=== PATIENT | female | born 1970 | race Caucasian/White ===

== ENCOUNTER 2018-07-13 06:22 | Outpatient (CLI) | payer OTHER ==
[~2018-07-13] VITALS: Ht 157.5 cm; Wt 65.8 kg
[2018-07-13] MEDS ORDERED: FERR-84 PO (12:08)
[2018-07-13] MEDS ORDERED: SIMV20TA3 PO (12:08)
[2018-07-13] MEDS ORDERED: RT-ALBUINH IH (12:08)
[2018-07-13] MEDS ORDERED: ASPI-586 PO (12:08)
[2018-07-13] MEDS ORDERED: CYAN250010 PO (12:08)
[2018-07-15] MEDS ORDERED: FERR325T17 PO (09:25)
[2018-07-15] MEDS ORDERED: DICL75TA2 PO (09:25)
[2018-07-15] MEDS ORDERED: CYAN500T44 PO (09:25)
[2018-07-15] MEDS ORDERED: PRAV20TA3 PO (09:25)
== END 2018-07-13 16:00 | disposition home or self-care (01) ==
LOC: PREOP 06:22
PROVIDERS: ATTEND Obstetrics & Gynecology
DX: Z01.818 Encounter for other preprocedural examination (principal)

== ENCOUNTER 2018-12-28 05:44 | Outpatient (CLI) | payer OTHER ==
[~2018-12-28] VITALS: Ht 157.5 cm; Wt 62.6 kg
[~2018-12-28 05:44] MED LIST: ASPI-586 PO; CYAN250010 PO; CYAN500T44 PO; DICL75TA2 PO; FERR-84 PO; FERR325T17 PO; PRAV20TA3 PO; RT-ALBUINH IH; SIMV20TA3 PO
[2018-12-31] MEDS ORDERED: OXC5T PO (14:14)
[2018-12-31] MEDS ORDERED: IBUP-844 PO (14:14)
[2018-12-31] MEDS ORDERED: ACET-77 PO (14:14)
== END 2018-12-28 16:20 ==
LOC: PREOP 05:44
PROVIDERS: ATTEND Obstetrics & Gynecology
DX: Z01.818 Encounter for other preprocedural examination (principal); N84.0 Polyp of corpus uteri

== ENCOUNTER 2018-12-31 11:21 | Day surgery (SDC) | payer OTHER ==
[2018-12-31] VITALS (8 sets, daily range): BP systolic 88–116; BP diastolic 57–88
[~2018-12-31] VITALS: Ht 157.5 cm; Wt 62.6 kg
[2018-12-31] MEDS ORDERED: metroNIDAZOLE 500MG/100ML IVPB 100 ML IV ONE (12:00)
[2018-12-31] MEDS ORDERED: ceFAZolin INJECTION 1,000 MG in WATER (STERILE) FOR INJECTION 10 ML IV ONE (12:00)
[2018-12-31] MEDS: LACTATED RINGERS 1,000 ML IV PRN ×2 (12:00→14:13)
[2018-12-31] MEDS ORDERED: ONDANSETRON 4 MG/2 ML (SDV) Z0FRAN ONE (12:26)
[2018-12-31] MEDS ORDERED: MIDAZOLAM 2 MG/2 ML (VERSED) VIAL ONE (12:26)
[2018-12-31] MEDS ORDERED: SEVOFLURANE (ULTANE) 15 ML INHAL SOLN ONE ×2 (12:26→14:05)
[2018-12-31] MEDS ORDERED: proPOfol 200 MG/20 ML (DIPRIVAN) VIAL IV ONE (12:26)
[2018-12-31] MEDS ORDERED: LIDOCAINE PF 2% 5 ML (XYLOCAINE) VIAL ONE (12:26)
[2018-12-31] MEDS ORDERED: fentaNYL INJECTION 100 MCG/2 ML AMP ONE (12:26)
[2018-12-31] MEDS ORDERED: DEXAMETHASONE 10 MG/ML (DECADRON) 1 ML VIAL ONE (12:26)
--- NOTE | 2018-12-31 13:16 | Progress Note-Pre Operative ---
Pre-Operative Progress Note H&P Reviewed The H&P was reviewed, patient examined and no changes noted. Date Seen by Provider: Dec 31, 2018 Time Seen by Provider: 13:10 Date H&P Reviewed: Dec 31, 2018 Time H&P Reviewed: 13:10 Pre-Operative Diagnosis: menorrhagia, thickened endometrium, endometrial polyp BE DOYLE DO Dec 31, 2018 13:16
[2018-12-31] MEDS ORDERED: D5 LR IV SOLUTION 1,000 ML IV SCH (14:07)
--- NOTE | 2018-12-31 14:12 | Operative Report ---
Operative Report Date of Procedure/Surgery Dec 31, 2018 Surgeon (s) BE DOYLE DO Hide Worker (s): Marisabel Zhang, MS III Post-Operative Diagnosis Endometrial polyp menorrhagia Procedure Performed Hysteroscopy, dilation and curettage, Kaylin endometrial ablation Description of Procedure Anesthesia Type: General Estimated blood loss (mL): minimal Specimen(s) collected/removed endometrial curettings, endometrial polyps Description of the Procedure 4.5 cm cervix 4 cm uterus 120 seconds Allergies and Home Medications Allergies Coded Allergies: No Known Drug Allergies (Unverified , 12/28/18) Home Medications Albuterol Sulfate 1 Puff Puff, 2 PUFF IH Q4H PRN for SHORTNESS OF BREATH, (Reported) 1 PUFF = 90 MCG Aspirin 81 Mg Tablet.dr, 81 MG PO DAILY, (Reported) Cyanocobalamin (Vitamin B-12) 500 Mcg Tablet, 500 MCG PO HS, (Reported) Ferrous Gluconate Unknown Strength Tablet, 75 MG PO HS, (Reported) TAKE 2 (37.5MG) TABS Pravastatin Sodium 20 Mg Tablet, 10 MG PO HS, (Reported) Patient Home Medication List Home Medication List Reviewed: Yes BE DOYLE DO Dec 31, 2018 14:12
[2018-12-31] MEDS ORDERED: ACET-77 PO (14:14)
[2018-12-31] MEDS ORDERED: IBUP-844 PO (14:14)
[2018-12-31] MEDS ORDERED: OXC5T PO (14:14)
[2018-12-31] MEDS ORDERED: ACETAMINOPHEN 500 MG TAB (TYLENOL) PO PRN (14:15)
[2018-12-31] MEDS ORDERED: KETOROLAC 30 MG/ML VIAL IVP ONE (14:15)
--- NOTE | 2018-12-31 14:17 | Discharge Inst-Surgical ---
Discharge Inst-Surgical Reconcile Patient Problems Problems Reviewed?: Yes Depart Medication/Instructions New, Converted or Re-Newed RX: RX on Chart Patient Instructions nothing in the vagina until follow up expect vaginal discharge/spotting/light bleeding for 2-4 weeks Final Diagnosis: endometrial polyp, menorrhagia Consults/Follow Up Goal/Follow Up Appt.: 1-2 weeks with Doyle Activity Activity as Tolerated: Yes Driving Instructions: No Driving for 24 Hours No Driving When on Pain Meds: Yes Incentive Spirometry: Every 2 Hours While Awake Avoid ALL Tobacco Products: Smoking of Any Kind Diet Discharge Diet: No Restrictions Diet for 24 Hours: No Alcohol, No [place] Foods, No Spicy Foods Diet After 24 Hours: Resume Home Diet Symptoms to Report to Physicia: Bleeding Excessive, Pain Increased, Fever Over 101 Degrees F, Vaginal Bleeding Increase, Cramps in Feet or Legs, Vaginal Discharge Foul If Any Problems/Questions/Issu: Contact Your Physician Skin/Wound Care Restrictions: No Douching, No [place], No Tampons BE DOYLE DO Dec 31, 2018 14:16
--- NOTE | 2018-12-31 14:52 | Anesthesia-General Post-Op ---
General Patient Condition Mental Status/LOC: Same as Preop Cardiovascular: Satisfactory Nausea/Vomiting: Absent Respiratory: Satisfactory Pain: Controlled Complications: Absent Post Op Complications Complications None Follow Up Care/Instructions Patient Instructions None needed. Anesthesia/Patient Condition Patient Condition Patient is doing well, no complaints, stable vital signs, no apparent adverse anesthesia problems. ALEXANDREA TURCIOS DO Dec 31, 2018 14:52
[2018-12-31] MEDS ORDERED: IBUPROFEN 600 MG (MOTRIN) TAB PO SCH (18:00)
== END 2018-12-31 15:25 | disposition home or self-care (01) ==
LOC: SDC 11:21
PROVIDERS: ATTEND Obstetrics & Gynecology
DX: N84.0 Polyp of corpus uteri (principal); N92.0 Excessive and frequent menstruation with regular cycle; R93.89 Abnormal findings on diagnostic imaging of other specified body structures; Z79.82 Long term (current) use of aspirin; Z85.828 Personal history of other malignant neoplasm of skin; Z87.891 Personal history of nicotine dependence; Z82.49 Family history of ischemic heart disease and other diseases of the circulatory system
CPT/HCPCS: 84703; 87081; 88305